=== PATIENT | female | born 1995 | race Caucasian/White ===

== ENCOUNTER 2019-09-07 09:00 | Outpatient (CLI) | payer BC ==
[~2019-09-07 09:00] MED LIST: BUPR150T6 PO; LEVO50TA PO
== END 2019-09-07 09:47 | disposition home or self-care (01) ==
LOC: EDSTATUS 09:00 → WOUND CARE 09:00
PROVIDERS: ATTEND Nurse Practitioner
DX: Z43.6 Encounter for attention to other artificial openings of urinary tract (principal); E03.8 Other specified hypothyroidism; J45.909 Unspecified asthma, uncomplicated; G89.29 Other chronic pain; N13.1 Hydronephrosis with ureteral stricture, not elsewhere classified; F32.0 Major depressive disorder, single episode, mild; F12.10 Cannabis abuse, uncomplicated; Z79.899 Other long term (current) drug therapy; Z98.890 Other specified postprocedural states
CPT/HCPCS: G0463

== ENCOUNTER 2019-12-21 09:59 | Emergency (ER) | payer BC ==
[~2019-12-21] VITALS: Ht 160 cm; Wt 140.3 kg
[~2019-12-21 09:59] MED LIST changes: +CLIN150C8 PO
[2019-12-21 11:17] LABS: BASOPHILS # (AUTO) 0.1 X10'3 (0-0.2); BASOPHILS % (AUTO) 0.9 % (0-1); EOSINOPHILS # (AUTO) 0.2 X10'3 (0-0.9); EOSINOPHILS % (AUTO) 1.6 % (0-6); HEMATOCRIT 38.9 % (35.0-45.0); HEMOGLOBIN 12.9 g/dl (12.0-16.0); LYMPHOCYTES # (AUTO) 2.3 X10'3 (1.1-4.8); LYMPHOCYTES % (AUTO) 20.4 % (21-51); MEAN CORPUSCULAR HEMOGLOBIN 26.9 PG (27.0-31.0); MEAN CORPUSCULAR HGB CONC 33.1 g/dL (33.0-36.5); MEAN CORPUSCULAR VOLUME 81.5 FL (78-98); MEAN PLATELET VOLUME 8.1 FL (7.4-10.4); MONOCYTES # (AUTO) 0.7 X10'3 (0-0.9); MONOCYTES % (AUTO) 6.4 % (2-12); NEUTROPHILS # (AUTO) 7.9 X10'3 (1.8-7.7); NEUTROPHILS % (AUTO) 70.7 % (42-75); PLATELET COUNT 300 X10'3 (140-440); RED BLOOD COUNT 4.77 X10'6 (4.20-5.60); WHITE BLOOD COUNT 11.2 X10'3 (4.5-11.0)
[2019-12-21 11:32] LABS: ALANINE AMINOTRANSFERASE 53 U/L (12-78); ALBUMIN 3.6 G/DL (3.4-5.0); ALBUMIN/GLOBULIN RATIO 0.9 (1.1-1.5); ALKALINE PHOSPHATASE 135 IU/L (46-116); ANION GAP 8 (8-16); ASPARTATE AMINO TRANSFERASE 25 U/L (10-37); BILIRUBIN,TOTAL 0.2 MG/DL (0.1-1.0); BLOOD UREA NITROGEN 14 MG/DL (7-18); BUN/CREATININE RATIO 13.3 (6.6-38.0); CALCIUM 8.8 MG/DL (8.5-10.1); CHLORIDE 104 MMOL/L (99-107); CREATININE 1.05 MG/DL (0.40-0.90); GLUCOSE 104 MG/DL (70-104); LIPASE 146 U/L (73-393); SODIUM 136 MMOL/L (135-145); TOTAL PROTEIN 7.4 G/DL (6.4-8.2); eGFR 66 ML/MIN
[2019-12-21 12:03] VITALS: BP 154/96
== END 2019-12-21 12:05 | disposition home or self-care (01) ==
LOC: ER 10:00
DX: K60.2 Anal fissure, unspecified (principal); G89.29 Other chronic pain; F32.9 Major depressive disorder, single episode, unspecified; Z98.890 Other specified postprocedural states; Z88.1 Allergy status to other antibiotic agents; Z88.8 Allergy status to other drugs, medicaments and biological substances; Z79.2 Long term (current) use of antibiotics; Z79.899 Other long term (current) drug therapy
CPT/HCPCS: 36415; 80053; 83690; 85025; 99283

== ENCOUNTER 2020-09-11 15:56 | Emergency (ER) | payer BC, OTHER ==
[~2020-09-11] VITALS: Ht 160 cm; Wt 145.0 kg
[~2020-09-11 15:56] MED LIST changes: +BUPR-317 PO; -BUPR150T6 PO
[2020-09-11 16:45] VITALS: BP 148/95
[2020-09-11 17:15] LABS: URINE HCG NEGATIVE (NEG)
[2020-09-11 17:18] LABS: CLARITY,URINE SLIGHTLY CLOUDY (Clear); COLOR,URINE YELLOW (Yellow); GLUCOSE, URINE NEGATIVE (Neg); KETONES,URINE NEGATIVE (Neg); LEUKOCYTE ESTERASE ,URINE TRACE (Neg); NITRITES, URINE NEGATIVE (Neg); OCCULT BLOOD,URINE NEGATIVE (Neg); PROTEIN,URINE NEGATIVE (Neg); UROBILINOGEN,URINE 0.2 E.U/dL (0.2-1.0)
[2020-09-11 17:23] LABS: UA COLLECTION TYPE CLN CATCH MIDSTREAM
[2020-09-11 17:24] LABS: MUCUS STRANDS FEW /LPF (Neg); SQUAMOUS EPITHELIAL CELL,UR MANY /LPF (FEW)
[2020-09-11 17:25] LABS: BACTERIA,URINE 2+ /HPF (Neg); HYALINE CASTS 0-3 /LPF (NEGATIVE); RBC,URINE 0-2 /HPF (0-2); WBC,URINE 0-4 /HPF (0-4)
[2020-09-11] MEDS ORDERED: diazepam 5mg tablet PO ONE (19:45)
[2020-09-11] MEDS ORDERED: ketorolac tromethamine 15mg/ml inj. IM ONE (19:45)
[2020-09-11] MEDS ORDERED: ORPH100T2 PO (20:42)
== END 2020-09-11 20:57 | disposition home or self-care (01) ==
LOC: ER 15:57
DX: M54.41 Lumbago with sciatica, right side (principal); G89.29 Other chronic pain; F32.9 Major depressive disorder, single episode, unspecified; Z98.890 Other specified postprocedural states; Z88.1 Allergy status to other antibiotic agents; Z88.8 Allergy status to other drugs, medicaments and biological substances; Z79.2 Long term (current) use of antibiotics; Z79.899 Other long term (current) drug therapy
CPT/HCPCS: 81001; 81025; 96372; 99283; J1885

== ENCOUNTER 2021-06-19 19:09 | Emergency (ER) | payer BC, OTHER ==
[~2021-06-19] VITALS: Ht 162.6 cm; Wt 136.4 kg
[~2021-06-19 19:09] MED LIST changes: +ORPH100T2 PO
[2021-06-19 19:59] LABS: BASOPHILS % (AUTO) 0.4 % (0-1); EOSINOPHILS # (AUTO) 0.1 X10'3 (0-0.9); EOSINOPHILS % (AUTO) 0.8 % (0-6); HEMATOCRIT 40.6 % (35.0-45.0); HEMOGLOBIN 13.6 g/dl (12.0-16.0); LYMPHOCYTES # (AUTO) 0.9 X10'3 (1.1-4.8); LYMPHOCYTES % (AUTO) 13.8 % (21-51); MEAN CORPUSCULAR HEMOGLOBIN 27.6 PG (27.0-31.0); MEAN CORPUSCULAR HGB CONC 33.6 g/dL (33.0-36.5); MEAN CORPUSCULAR VOLUME 82.1 FL (78-98); MEAN PLATELET VOLUME 8.4 FL (7.4-10.4); MONOCYTES # (AUTO) 0.6 X10'3 (0-0.9); PLATELET COUNT 277 X10'3 (140-440); RED BLOOD COUNT 4.94 X10'6 (4.20-5.60); RED CELL DISTRIBUTION WIDTH 14.6 % (11.5-14.5); WHITE BLOOD COUNT 6.6 X10'3 (4.5-11.0)
[2021-06-19 20:15] LABS: ALANINE AMINOTRANSFERASE 39 U/L (12-78); ALBUMIN 3.5 G/DL (3.4-5.0); ALBUMIN/GLOBULIN RATIO 0.9 (1.1-1.5); ALKALINE PHOSPHATASE 144 IU/L (46-116); ANION GAP 10 (8-16); ASPARTATE AMINO TRANSFERASE 15 U/L (10-37); BILIRUBIN,TOTAL 0.2 MG/DL (0.1-1.0); BLOOD UREA NITROGEN 12 MG/DL (7-18); BUN/CREATININE RATIO 10.3 (6.6-38.0); CALCIUM 8.6 MG/DL (8.5-10.1); CHLORIDE 103 MMOL/L (99-107); CREATININE 1.16 MG/DL (0.40-0.90); GLUCOSE 183 MG/DL (70-104); POTASSIUM 3.9 MMOL/L (3.5-5.1); SODIUM 138 MMOL/L (135-145); TOTAL PROTEIN 7.2 G/DL (6.4-8.2); eGFR 58 ML/MIN
[2021-06-19 23:19] LABS: D-DIMER 0.72 MG/L FEU (0-0.50)
[2021-06-20] MEDS ORDERED: iohexol 300mg/ml 100ml inj. ONE (01:12)
[2021-06-20 01:29] LABS: HCG SERUM QL NEGATIVE
[2021-06-20] MEDS ORDERED: acetaminophen 325mg tablet PO ONE (02:05)
[2021-06-20] MEDS ORDERED: oseltamivir phos 75mg capsule PO ONE (07:55)
[2021-06-20] MEDS ORDERED: OSEL45CA PO ×2 (07:56)
[2021-06-20] MEDS ORDERED: TAM75C PO (07:58)
[2021-06-20 08:12] VITALS: BP 150/92
[2021-06-20] MEDS ORDERED: albuterol 2.5 MG/3 ML nebule NEB ONE (08:15)
--- NOTE | 2021-06-20 08:16 | NUR ---
pt complaining of tightness and difficulty breathing. Dr. Prado notified.
[2021-06-20] MEDS ORDERED: ALBU8HFA PO (08:20)
== END 2021-06-20 08:51 | disposition home or self-care (01) ==
LOC: ER 19:09
DX: J11.1 Influenza due to unidentified influenza virus with other respiratory manifestations (principal); G89.29 Other chronic pain; Z90.5 Acquired absence of kidney; Z95.5 Presence of coronary angioplasty implant and graft; Z98.890 Other specified postprocedural states; Z88.2 Allergy status to sulfonamides; Z88.8 Allergy status to other drugs, medicaments and biological substances; Z79.2 Long term (current) use of antibiotics; Z79.899 Other long term (current) drug therapy
CPT/HCPCS: 36415; 71045; 71275; 80053; 84484; 84703; 85025; 85379; 87502; 87503; 93005; 94640; 99285; Q9967; 94760

== ENCOUNTER 2022-03-15 16:50 | Emergency (ER) | payer BC, MEDICAID ==
[~2022-03-15] VITALS: Ht 160 cm; Wt 136.0 kg
[2022-03-15 16:59] VITALS: BP 156/94
[2022-03-15] MEDS ORDERED: HYDROcodone/acetaminophen 10/325mg tab PO ONE (18:05)
[2022-03-15] MEDS ORDERED: triamcinolone acetonide 40mg/ml inj IM ONE (18:05)
== END 2022-03-15 18:19 | disposition home or self-care (01) ==
LOC: ER 16:51
DX: G89.29 Other chronic pain (principal); M54.42 Lumbago with sciatica, left side; M25.552 Pain in left hip; F32.9 Major depressive disorder, single episode, unspecified; Z98.890 Other specified postprocedural states; Z88.2 Allergy status to sulfonamides; Z88.8 Allergy status to other drugs, medicaments and biological substances; Z79.899 Other long term (current) drug therapy
CPT/HCPCS: 96372; 99283; J3301

== ENCOUNTER 2023-04-07 17:01 | Emergency (ER) | payer MEDICAID, OTHER ==
[~2023-04-07] VITALS: Ht 165.1 cm; Wt 156.6 kg
[~2023-04-07 17:01] MED LIST changes: +CLIN-214 PO; -CLIN150C8 PO; -ORPH100T2 PO; +ORPH100T4 PO
[2023-04-07 17:13] VITALS: BP 176/116; PULSE 96; TEMP 97.8; O2SAT 98
[2023-04-07] MEDS ORDERED: CYCL-1 PO (17:20)
[2023-04-07] MEDS ORDERED: PRED20TA PO (17:20)
[2023-04-07 17:37] VITALS: RESP 15
[2023-04-07] MEDS: ketorolac trometh inj. 60 MG/2 ML VIAL IM ONE (17:37)
[2023-04-07] MEDS: diazepam inj 5 MG/ML inj. IM ONE (17:37)
== END 2023-04-07 18:06 | disposition home or self-care (01) ==
LOC: ER 17:01
DX: M54.16 Radiculopathy, lumbar region (principal); M54.31 Sciatica, right side; G89.29 Other chronic pain; M54.9 Dorsalgia, unspecified; F32.A Depression, unspecified; Z88.2 Allergy status to sulfonamides; Z88.8 Allergy status to other drugs, medicaments and biological substances; Z79.899 Other long term (current) drug therapy
CPT/HCPCS: 96372; 99284; J1885; J3360

== ENCOUNTER 2024-09-07 23:12 | Emergency (ER) | payer MEDICAID ==
[~2024-09-07] VITALS: Ht 160 cm; Wt 159.8 kg
[~2024-09-07 23:12] MED LIST changes: -BUPR-317 PO; +BUPR-726 PO; +CYCL-1 PO
--- NOTE | 2024-09-08 00:50 | Physician Documentation ---
History of Present Illness ~ Chief Complaint: Back Pain Stated Complaint: BACK PAIN Time Seen by MD: 00:01 OK to notify your PCP?: Yes Primary Medical Doctor: none Source: patient, RN/MD, RN notes reviewed, old records Mode of Arrival: POV Exam Limitations: no limitations HPI 28 year old female with history of sciatic pain presents to the emergency department for complaints of back pain that has been present for two weeks. She states that her pain is spasming from her hip to her knee, then her knee to foot is burning, and her toes are numb. She states that she typically gets flare ups once a year. She states she has been taking acetaminophen for her pain. Medication Reconciliation Allergies: Coded Allergies: sulfamethoxazole (Verified Allergy, Unknown, 09/07/24) trimethoprim (Verified Allergy, Unknown, 09/07/24) Scheduled Bupropion HCl (Bupropion Xl), 1 TAB PO DAILY, (Reported) Clindamycin HCl (Clindamycin HCl CAPSULE), 300 MG PO Q8H, (Reported) Cyclobenzaprine* (Cyclobenzaprine*), 1 TAB PO TID Levothyroxine Sodium (Synthroid), 1 TAB PO DAILY, (Reported) Orphenadrine Citrate (Norflex), 1 TAB PO Q12H PRN Prednisone* (Prednisone*), 1 TAB PO DAILY Past Medical History Past Medical History: *RENAL/*, Chronic Pain, Chronic Back Pain, Depression Past Surgical History: other Other Past Surgical History: History of nephrostomy, cystoscopy stent placement on left ureter Alcohol Use: None Drug Use: none Lives In: Home Review of Systems All Other Systems at this time: Reviewed and Negative ROS As stated above in the HPI, otherwise all systems are reviewed and negative. Physical Exam Physical Exam Vital Signs: RN Vital Signs have been reviewed: Yes, Temperature: 97.7, Source: Temporal, Heart Rate: 75, Respiratory Rate: 18, BP: 145/92, Pulse Oximetry: 96, Weight: 159.800 Oxygen Flow Rate: 0 Pulse Oximetry Reflects: adequate oxygenation Physical Exam General: The patient is well developed, well nourished, nontoxic appearing and is in no acute distress. Skin: [place], warm and dry with no rashes. HEENT: Head was normocephalic and atraumatic. Eyes - pupils equal, round, reactive to light and accommodation. Extraocular movements were intact. C onjunctivae were nonicteric. Ears - bilateral tympanic membranes were normal. The mouth and oropharynx were clear with moist mucous membranes. There were no pharyngeal exudates or erythema. Neck: Supple and nontender. There was no jugular venous distention, lymphadenopathy, thyromegaly or masses. Chest: Clear to auscultation bilaterally without wheezes, rales or rhonchi. No accessory muscle use. No dullness to percussion. Heart: Rate regular and rhythmic. S1, S2. No murmurs. Palpation of the chest wall was normal. No rubs or thrills. Abdomen: Tenderness of L4/5. Soft, nontender and nondistended. Positive bowel sounds. No guarding or rebound. No hepatosplenomegaly or palpable masses. Extremities: Positive straight leg test. No cyanosis, clubbing or edema. The patient moves all extremities. Pulses were equal and symmetric. Neurologic: Cranial nerves II-XII were intact. Sensation was intact to light touch throughout. Motor strength was 5/5 in all four extremities. Deep tendon reflexes were intact in both upper and lower extremities. Psychologic: The patient was oriented to person, place and time. The patient demonstrated appropriate judgement and insight. Progress Results/Orders Reviewed/noted all lab results: Yes Results/Orders Completed Orders - SCOTT WOLF MD Triamcinolone Acet 40mg/Ml Inj (Kenalog- (09/08/24 01:00) Tramadol Tablet (Ultram Tablet) (09/08/24 01:00) Cyclobenzaprine Tablet (Flexeril Tablet) (09/08/24 01:00) Prednisone Tablet (Prednisone Tablet) (09/08/24 02:40) Medications Received in ER Medications (Trade) Dose Ordered Sig/Abhilash Route PRN Reason Start Time Stop Time Status Last Admin Dose Admin (Ultram tablet) 100 mg ONCE ONCE PO 09/08/24 01:00 09/08/24 01:16 DC 09/08/24 01:36 100 MG (Flexeril tablet) 10 mg ONCE ONCE PO 09/08/24 01:00 09/08/24 01:01 DC 09/08/24 01:36 10 MG (predniSONE tablet) 60 mg ONCE ONCE PO 09/08/24 02:40 09/08/24 02:54 DC 09/08/24 02:57 60 MG Vital Signs 09/07/24 09/07/24 09/08/24 09/08/24 23:24 23:59 01:33 01:36 Temp 97.7 97.7 Pulse 75 77 Resp 16 18 16 16 B/P (MAP) 145/92 145/87 Pulse Ox 96 99 O2 Flow Rate 0 09/08/24 02:31 Pulse 78 B/P (MAP) 140/90 (107) Pulse Ox 98 O2 Flow Rate 0 Re-Evaluation Re-Evaluation : Re-Evaluation: Improved Progress Patient was seen and examined. Patient is given reassurance. Patient was then able to receive Kenalog due to lack of availability. For that reason oral steroids were given and a prescription for the same. Patient received Flexeril and some tramadol for her pain as well. Patient did not want a prescription for those two medications. Pain was feeling a slight better. She did have some sciatica pain radiating down the right side. She is feeling much better and was ultimately discharged to follow up with her primary care physician. Medical Decision Making Additional info obtained from: old records Differential Dx:Considerations: Include: DJD, Fracture, HNP, Musculoskeletal pain, Pyelonephritis, Strain, Urinary obstruction, Urolithiasis, Other Departure Time of Disposition: 01:02 Disposition: 01 HOME / SELF CARE / HOMELESS Impression: Primary Impression: Sciatic leg pain Condition: Stable Discharge Instructions: Sciatica Referrals: NO PRIMARY CARE PROVIDER (PCP) Prescriptions Prednisone* (Prednisone*) 20 Mg Tablet 1 TAB PO DAILY for 5 Days, #5 TAB Prov: SCOTT WOLF MD 09/08/24 Education Educated: Patient Educated regarding: diagnosis, treatment, prognosis, need for follow up Signature Scribe Signature: Scribed for Scott Wolf MD by Josee Bills . 09/08/24 01:03 Attestation: The note accurately reflects work and decisions made by me.Scott Wolf MD 09/08/24 00:50 SCOTT WOLF MD Sep 08, 2024 00:50 JOSEE PRITCHETT Sep 08, 2024 01:03
[2024-09-08] MEDS: triamcinolone acetonide 40mg/ml inj IM ONE (01:00)
[2024-09-08 01:33] VITALS: TEMP 97.7
[2024-09-08 01:36] VITALS: RESP 16
[2024-09-08 02:31] VITALS: BP 140/90; PULSE 78; O2SAT 98
[2024-09-08] MEDS ORDERED: PRED20TA PO (02:42)
== END 2024-09-08 02:59 | disposition home or self-care (01) ==
LOC: ER 23:12
DX: M54.31 Sciatica, right side (principal); F32.A Depression, unspecified; Z88.2 Allergy status to sulfonamides; Z88.8 Allergy status to other drugs, medicaments and biological substances; Z79.899 Other long term (current) drug therapy
CPT/HCPCS: 99284; J7512